=== PATIENT | female | born 1975 | race Two or more races ===

== ENCOUNTER 2022-03-18 18:22 | Emergency (ER) | payer OTHER ==
[~2022-03-18] VITALS: Ht 165.1 cm; Wt 76.7 kg
[2022-03-18] MEDS ORDERED: CHLORTHALIDONE PO (18:36)
[2022-03-18] MEDS ORDERED: CRESTOR20 MG PO (18:40)
[2022-03-18] MEDS ORDERED: LABETALOL HCL100 MG PO (18:40)
== END 2022-03-19 00:28 | disposition home or self-care (01) ==
LOC: ER 18:22
DX: R10.13 Epigastric pain (principal); D25.9 Leiomyoma of uterus, unspecified; Z88.2 Allergy status to sulfonamides; Z88.8 Allergy status to other drugs, medicaments and biological substances; Z91.018 Allergy to other foods